=== PATIENT | female | born 1990 | race American Indian/Alaskan Native ===

== ENCOUNTER 2020-03-15 15:54 | Outpatient (CLI) | payer OTHER ==
[2020-03-15 17:16] VITALS: BP 109/73
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
== END 2020-03-15 23:05 | disposition home or self-care (01) ==
LOC: TRG 15:54 → APU 15:59 → TRG 23:05
PROVIDERS: ATTEND Obstetrics & Gynecology
DX: Z34.03 Encounter for supervision of normal first pregnancy, third trimester (principal); Z3A.38 38 weeks gestation of pregnancy
CPT/HCPCS: 59025; 76815; 76819; 85460

== ENCOUNTER 2020-03-26 07:54 | Inpatient (IN) | payer OTHER ==
[2020-03-26] MEDS ORDERED: CARBOPROST TROMETHAMINE 250 MCG/1 ML INJ IM PRN (08:16)
[2020-03-26] MEDS ORDERED: ePHEDrine SULFATE 50 MG/1 ML INJ IV PRN (08:16)
[2020-03-26] MEDS ORDERED: LIDOCAINE (2%) 20 MG/1 ML VIAL 20 ML MDV INFILTRATI NR (08:16)
[2020-03-26] MEDS ORDERED: miSOPROStol 200 MCG TAB PR PRN (08:16)
[2020-03-26] MEDS ORDERED: METHYLERGONOVINE MALEATE 0.2 MG/ML VIAL IM PRN (08:16)
[2020-03-26] MEDS ORDERED: TERBUTALINE 1 MG/1 ML INJ SUB-Q PRN (08:16)
[2020-03-26] MEDS ORDERED: OXYTOCIN 10 UNIT/1 ML INJ IM PRN (08:16)
[2020-03-26] MEDS ORDERED: AMPICILLIN/NS 2 GM/100 ML 2 GM/100 ML BAG IV ONE (08:16)
--- NOTE | 2020-03-26 08:16 | History and Physical Report ---
History of Present Illness Date of examination: 03/26/20 Chief complaint: Labor History of present illness: EDC Calculations LMP: 03/26/2020 Past History : 1 Term Births: 0 Premature Births: 0 Living Children: 0 Para: 0 Mult. Births: 0 Prev : 0 Aborta: 0 Elect. Ab: 0 Spont. Ab: 0 Ectopics: 0 Past Medical History: Reviewed history and no changes required: Negative Past Medical History Past Surgical History: Reviewed history and no changes required: negative Past Medical History Anesthesia Complications: negative Anemia: negative Autoimmune Disorder: negative Bleeding Disorder: negative Blood Transfusions: negative Breast Disease: negative Diabetes: negative Heart Disease: negative Hypertension: negative Hepatitis/Liver Disease: negative Kidney Disease/UTI: negative Neurologic/Epilepsy/Migraines: negative Phlebitis/Varicosities: negative Psychiatric: negative Pulmonary Disease/Asthma: negative Thyroid Disease: negative Hospitalizations: negative Surgery (Non-automobile damage appraiser): negative Abnormal PAP: positive, 2018 had colpo that was WNL BROOKE Exposure: negative Infertility: negative Uterine Anomaly: negative Uterine Surgery (not C/S): negative Other Gynecologic Problems: negative Family Hx: MGM DM PGF Prostat CA Infection History Hx of STD: none HIV Risk Eval: no Hepatitis B Risk Eval: low risk Personal hx. of genital herpes: no Partner hx. of genital herpes: no Rash, Viral, or Febrile illness since last LMP? no Varicella/Chicken Pox Status: Previous Disease TB Risk: no Infection History Comments: Vaccine given for Chicken Pox Genetic History Congenital Heart Defect: Mom: no Dad: no Rayo Disease: Mom: no Dad: no Thalassemia Mom: no Dad: no Neural Tube Defect Mom: no Dad: no Down's Syndrome Mom: no Dad: no Jose-Sachs Mom: no Dad: no Sickle Cell Disease/Trait Mom: no Dad: no Hemophilia Mom: no Dad: no Muscular Dystrophy Mom: no Dad: no Cystic Fibrosis Mom: no Dad: no [place] Chorea Mom: no Dad: no Mental Retardation Mom: no Dad: no Fragile X Mom: no Dad: no Other Genetic/Chromosomal Disorder Mom: no Dad: no Child w/other defect Mom: no Dad: no Enviromental Exposures Xray Exposure: no Medication, drug, or alcohol use since LMP: no Chemical/Other Exposure: no Exposure to Cat Liter: no Hx of Parvovirus (Fifth Disease): no Occupational Exposure to Children: none Active Medications: None Current Allergies (reviewed today): No known allergies Past History Past Medical History: other (see HPI) Past Surgical History: other (see HPI) APPLICATION SUPPORT TECHNICIAN History: other (see HPI) Family/Genetic History: other (see HPI) - Obstetrical History Expected Date of Delivery: 03/26/20 Actual Gestation: 40 Week(s) 0 Day(s) : 1 Para: 0 Hx # Term Pregnancies: 0 Number of Pregnancies: 0 Spontaneous Abortions: 0 Induced : 0 Number of Living Children: 0 Medications and Allergies Allergies Allergy/AdvReac Type Severity Reaction Status Date / Time No Known Allergies Allergy Verified 06/26/15 00:05 Review of Systems All systems: negative - Physical Exam Breasts: Positive: normal Cardiovascular: Regular rate Lungs: Positive: Normal air movement Abdomen: Positive: normal appearance, soft Genitourinary (Female): Positive: normal external genitalia, normal perenium Vulva: both: normal Vagina: Positive: normal moisture Uterus: Positive: normal size, normal contour Extremities: Positive: normal Deep Tendon Reflex Grade: Normal +2 - Obstetrical FHR: category 1 Uterine Contraction Monitor Mode: External Cervical Dilatation: 9.5 Cervical Effacement Percentage: 100 station: +1 Uterine Contraction Pattern: Regular Uterine Tone Measurement Phase: Contraction Uterine Contraction Intensity: Strong/Firm Results Result Diagrams: 03/26/20 Unknown All other labs normal. Assessment and Plan pt arrived 9cs, admission orders in EMR. Anticipate . - Patient Problems (1) GBS (group B Streptococcus carrier), +RV culture, currently Current Visit: Yes Status: Acute Plan to address problem: ampicillin q4hr until delivery (2) 40 weeks gestation of Current Visit: Yes Status: Acute
[2020-03-26] MEDS ORDERED: LACTATED RINGERS 1,000 ML ONE (08:18)
[2020-03-26] MEDS ORDERED: fentaNYL 100 MCG/2 ML INJ IV PRN (08:30)
[2020-03-26] MEDS ORDERED: LACTATED RINGERS 1,000 ML IV SCH (08:30)
[2020-03-26] MEDS ORDERED: ONDANSETRON 4 MG/2 ML INJ IV PRN ×2 (08:30→15:44)
[2020-03-26] MEDS ORDERED: OXYTOCIN DRIP 30 UNITS/500 ML BAG IV SCH ×2 (09:00)
[2020-03-26] MEDS ORDERED: MINERAL OIL 30 ML ORAL LIQD ONE (09:27)
[2020-03-26 09:38] LABS: Hematocrit 38.7 % (30.3-42.9); Hemoglobin 13.1 gm/dl (10.1-14.3); Mean Corpuscular HGB Conc 34 % (30-34); Mean Corpuscular Volume 100 fl (79-97); Platelet Count 162 K/mm3 (140-440); Red Blood Count 3.88 M/mm3 (3.65-5.03); Red Cell Distribution Width 14.5 % (13.2-15.2)
[2020-03-26] MEDS ORDERED: OXYTOCIN 10 UNIT/1 ML INJ IM NR (10:00)
--- NOTE | 2020-03-26 10:06 | Procedure Note ---
OB Delivery Note - Delivery Date of Delivery: 03/26/20 ( Jonathon King) Civil Engineering Project Designer: TAYLER MONCADA ([facility]) Estimated blood loss: other (400 cc) - Vaginal Delivery presentation: vertex Delivery position: OA (Shoulders delivered transverse) Intrapartum events: none Delivery induction: none Delivery monitor: external FHT, external uterine Route of delivery: Delivery placenta: spontaneous Delivery cord: nuchal cord Episiotomy: none Delivery laceration: 1st degree (hemostatic not repaired) Anesthesia: intravenous Delivery comments: Male born over intact perinium, EMILIE, nuchal cord x1, shoulders delivered transverse. Infant placed skin to skin on maternal abdomen. 3 vessel cord clamped and cut after cessation of pulsation. Placenta delivered intact and complete. Small to moderate vaginal bleeding noted after of placenta and fundal massage. IV and IM pitocin given. 1st degree vaginal lac hemostatic, reviewed with patient, not repaired. EBL 400 Apgars 8,9 and weight 9lbs 140z. All counts complete. Mother and Baby LDRP stable. - A at 1 minute: 8 at 5 minutes: 9 Infant Gender: Male (9lbs 14oz)
[2020-03-26] MEDS ORDERED: AMPICILLIN/NS 1 GM/50 ML 1 GM/50 ML BAG IV SCH (12:17)
[2020-03-26] MEDS ORDERED: diphenhydrAMINE 25 MG CAP PO PRN (15:44)
[2020-03-26] MEDS ORDERED: MAGNESIUM HYDROXIDE (MOM) ORAL LIQD UDC PO PRN (15:44)
[2020-03-26] MEDS ORDERED: BENZOCAINE/MENTHOL 20/0.5% TOP SPRAY 56 GM TP PRN (15:44)
[2020-03-26] MEDS ORDERED: PROMETHAZINE 25 MG RECT SUPP PR PRN (15:44)
[2020-03-26] MEDS ORDERED: LANOLIN/ZINC/DIMETHICONE (LANSINOH) 7 GM TP PRN ×2 (15:44)
[2020-03-26] MEDS ORDERED: PROMETHAZINE 25 MG TAB PO PRN (15:44)
[2020-03-26] MEDS ORDERED: ACETAMINOPHEN 325 MG TAB PO PRN (15:44)
[2020-03-26] MEDS ORDERED: IBUPROFEN 600 MG TAB PO SCH (18:00)
[2020-03-26] MEDS: IBUPROFEN 800 MG TAB PO SCH ×2 (18:43→23:00)
[2020-03-26] MEDS ORDERED: MINERAL OIL 30 ML ORAL LIQD PO PRN (22:00)
[2020-03-26 23:48] LABS: Hematocrit 28.2 % (30.3-42.9); Hemoglobin 9.7 gm/dl (10.1-14.3)
[2020-03-27] MEDS ORDERED: DIPHtheria,PERTUSSIS(ACELL),TETANUS VACCINE/PF 0.5 ML VIAL IM ONE (06:00)
[2020-03-27] MEDS: PRENATAL VIT27-FE FUMARATE-FOLIC ACID VIT TAB PO SCH (10:00)
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
[2020-03-27] MEDS: IBUPROFEN 800 MG TAB PO SCH ×2 (13:17→18:45)
[2020-03-28] MEDS: IBUPROFEN 800 MG TAB PO SCH ×3 (01:10→22:47)
[2020-03-28] MEDS: WITCH HAZEL/ GLYCERIN PAD TP PRN ×2 (01:11→22:43)
--- NOTE | 2020-03-28 06:10 | Discharge Summary ---
Providers - Providers Date of Admission: 03/26/20 09:51 Date of discharge: 03/28/20 Attending physician: VISHAL HAIDER 03/27/20 10:00 Consult to Geophysical Observer [CONS] Routine Reason For Exam: assistance with Primary care physician: VISHAL HAIDER Hospitalization Reason for admission: Labor Condition: Good Pertinent studies: H&H 9.7/28.2, asymptomatic anemia from acute blood loss Procedures: Hospital course: uncomplicated and postop course Disposition: DC-01 TO HOME OR SELFCARE - Discharge Diagnoses (1) (normal spontaneous vaginal delivery) Status: Acute Core Measure Documentation - Palliative Care Palliative Care/ Comfort Measures: Not Applicable - Core Measures Any of the following diagnoses?: none Exam - Constitutional Vitals: Temp Pulse Resp BP Pulse Ox 97.8 F 81 20 108/64 99 03/28/20 05:01 03/28/20 05:01 03/28/20 05:01 03/28/20 05:01 03/28/20 05:01 General appearance: Present: no acute distress, well-nourished - EENT Eyes: Present: PERRL ENT: hearing intact, clear oral mucosa - Neck Neck: Present: supple, normal ROM - Respiratory Respiratory effort: normal Respiratory: bilateral: CTA - Cardiovascular Rhythm: regular - Extremities Extremities: No edema - Abdominal General gastrointestinal: Present: soft, non-tender, non-distended - Rectal Rectal Exam: deferred - Integumentary Integumentary: Present: clear, warm, dry - Musculoskeletal Musculoskeletal: gait normal, strength equal bilaterally - Psychiatric Psychiatric: appropriate mood/affect, intact judgment & insight - Neurologic Neurologic: CNII-XII intact, moves all extremities - Additional findings Additional findings: lochia scant, fundus firm, VSSAF. Pumping breast milk for baby in NICU Plan Activity: no restrictions Diet: regular Follow up with: VISHAL HAIDER MD [Primary Care Provider] - 7 Days (Congratulations! Please call [phone] to schedule your son's circumcision in 1 week and your visit in 4 weeks. Bring EMLA cream to your son's appointment and await further teaching. Call for any questions or concerns. ) Prescriptions: Lidocain2.5%/Prilocai2.5% [Emla] 5 gm TP ONCE PRN #1 tube PRN Reason: Pain Ferrous Sulfate [Feosol 325 MG tab] 325 mg PO BID #60 tablet Ibuprofen [Motrin 800 MG tab] 800 mg PO Q8HR PRN #30 tablet PRN Reason: Pain
[2020-03-28] MEDS: PRENATAL VIT27-FE FUMARATE-FOLIC ACID VIT TAB PO SCH (09:22)
[2020-03-28 22:49] VITALS: BP 122/78
== END 2020-03-28 22:55 | disposition home or self-care (01) | DRG 775 ==
LOC: TRG 07:54 → APU 07:56 → LD 09:03 → TRG 09:50 → APU 09:51 → LD 10:52 → OB 12:51
PROVIDERS: ADMIT Obstetrics & Gynecology; ATTEND Obstetrics & Gynecology
PROC: 10E0XZZ Delivery of Products of Conception, External Approach (ICD-10-PCS; principal; 2020-03-26)
PROC: 0HQ9XZZ Repair Perineum Skin, External Approach (ICD-10-PCS; 2020-03-26)
DX: O99.824 Streptococcus B carrier state complicating childbirth (principal); Z37.0 Single live birth; Z3A.40 40 weeks gestation of pregnancy; O70.0 First degree perineal laceration during delivery; D62 Acute posthemorrhagic anemia; O90.81 Anemia of the puerperium
CPT/HCPCS: 36415; 85014; 85018; 85027; 86592; 86850; 86900; 86901; G0378; J0290; J2590; J3010; J7120; U0003